=== PATIENT | male | born 1980 | race Caucasian/White ===

== ENCOUNTER 2019-08-02 15:29 | Observation (INO) | payer BC, OTHER ==
[2019-08-02] MEDS ORDERED: Sodium Chloride 0.9% 1,000 ML IV ONE (15:48)
--- NOTE | 2019-08-02 15:48 | EDM.PDOC ---
ED HPI GENERAL MEDICAL PROBLEM - General Chief Complaint: Abdominal Pain Stated Complaint: ABDOMINAL PAIN Time Seen by Provider: 08/02/19 15:43 - History of Present Illness INITIAL COMMENTS - FREE TEXT/NARRATIVE: HISTORY AND PHYSICAL: History of present illness: Patient is 39-year-old white male presents with concern of abdominal pain worsened last 24 hours was sent from clinic with a CT scan suggestive of acute appendicitis patient also awake, 15,000. Patient also complains of nausea and vomiting over last 24 hours. Review of systems: As per history of present illness and below otherwise all systems reviewed and negative. Past medical history: As per history of present illness and as reviewed below otherwise noncontributory. Surgical history: As per history of present illness and as reviewed below otherwise noncontributory. Social history: No reported history of drug or alcohol abuse. Family history: As per history of present illness and as reviewed below otherwise noncontributory. Physical exam: HEENT: Atraumatic, normocephalic, pupils reactive, negative for conjunctival pallor or scleral icterus, mucous membranes moist, throat clear, neck supple, nontender, trachea midline. Lungs: Clear to auscultation, breath sounds equal bilaterally, chest nontender. Heart: S1S2, regular, negative for clicks, rubs, or JVD. Abdomen: Soft, nondistended, localized tenderness right lower quadrant with rebound and guarding Negative for masses or hepatosplenomegaly. Negative for costovertebral tenderness. Pelvis: Stable nontender. Genitourinary: Deferred. Rectal: Deferred. Extremities: Atraumatic, negative for cords or calf pain. Neurovascular unremarkable. Neuro: Awake, alert, oriented. Cranial nerves II through XII unremarkable. Cerebellum unremarkable. Motor and sensory unremarkable throughout. Exam nonfocal. Diagnostics: CBC CMP PT/INR UA Therapeutics: Saline 1 L bolus Impression: 1 acute appendicitis Definitive disposition and diagnosis as appropriate pending reevaluation and review of above. right lower abd Pain Score (Numeric/FACES): 10 - Related Data Allergies Allergy/AdvReac Type Severity Reaction Status Date / Time No Known Allergies Allergy Verified 08/02/19 15:40 Home Meds: Home Meds . [No Known Home Meds] 08/02/19 [History] Past Medical History - Past Health History Medical/Surgical History: Denies Medical/Surgical History Social & Family History - Family History Family Medical History: Noncontributory - Tobacco Use Smoking Status *Q: Light Tobacco Smoker Years of Tobacco use: 20 Packs/Tins Daily: 0 - Recreational Drug Use Recreational Drug Use: No ED ROS GENERAL - Review of Systems Review Of Systems: Comprehensive ROS is negative, except as noted in HPI. ED EXAM, GENERAL - Physical Exam Exam: See Below (See dictation) Course - Vital Signs Last Recorded V/S: Last Vital Signs Temp 36.8 C 08/02/19 15:37 Pulse 92 08/02/19 15:37 Resp 18 08/02/19 15:37 BP 123/81 08/02/19 15:37 Pulse Ox 97 08/02/19 15:37 Departure - Departure Time of Disposition: 15:47 Disposition: Home, Self-Care 01 Condition: Good Clinical Impression: Abdominal pain, Appendicitis - Discharge Information Referrals: PCP,Unobtain [Primary Care Provider] - Sepsis Event Note - Evaluation Sepsis Screening Result: No Definite Risk - Focused Exam Vital Signs: Vital Signs Temp Pulse Resp BP Pulse Ox 08/02/19 15:37 36.8 C 92 18 123/81 97 Date Exam was Performed: 08/02/19 Time Exam was Performed: 15:45
[2019-08-02] MEDS ORDERED: Piperacillin/Tazobactam 3.375 GM in Sodium Chloride 0.9% 50 ML IV ONE (16:18)
[2019-08-02 16:36] LABS: BLOOD UREA NITROGEN,BUN 12 mg/dL (7.0-18.0); CARBON DIOXIDE,CO2 24.6 mmol/L (21.0-32.0); CHLORIDE,CL 101 mmol/L (98-107); GLUCOSE RANDOM 109 mg/dL (74-106); POTASSIUM,K 3.6 mmol/L (3.5-5.1); SODIUM,NA 137 mmol/L (136-148)
[2019-08-02] MEDS ORDERED: Midazolam 1 MG/ML 2 ML SDV ONE (16:42)
[2019-08-02] MEDS ORDERED: Propofol 200 MG/20 ML SDV ONE (16:42)
[2019-08-02] MEDS ORDERED: fentaNYL 250 MCG/5 ML SDV ONE (16:43)
[2019-08-02] MEDS ORDERED: Rocuronium 100 MG/10 ML Syringe ONE (16:44)
[2019-08-02] MEDS ORDERED: Ondansetron 4 MG/2 ML SDV ONE (16:44)
[2019-08-02] MEDS ORDERED: Glycopyrrolate 0.2 MG/ML SDV ONE (16:44)
[2019-08-02] MEDS ORDERED: Ketorolac 30 MG/ML SDV ONE (16:44)
[2019-08-02] MEDS ORDERED: Lidocaine 2% 5 ML SDV ONE (16:44)
[2019-08-02] MEDS ORDERED: Sugammadex Sodium 200 MG/2 ML VIAL ONE (16:47)
--- NOTE | 2019-08-02 17:11 | PCM.HP.2 ---
H&P History of Present Illness - General Date of Service: 08/02/19 Admit Problem/Dx: Admission Diagnosis/Problem Admission Diagnosis/Problem Appendicitis Source of Information: Patient History Limitations: Reports: No Limitations - History of Present Illness Initial Comments - Free Text/Narative: Patient is an otherwise healthy 39 year old male who presented to the ER with abdominal pain. It started yesterday. It was located along the upper abdomen and at first he thought he was hungry. He went out for lunch but found that he had a poor appetite. He threw up what he did eat and continued to have nausea and vomiting the rest of the day. The patient looked up his symptoms online and felt that he may have appendicitis, but decided to wait until today to see if the pain persisted. Today the pain is now located in the RLQ and he continues to have no appetite and feel nauseated. He has been sipping on sprite all day but that is all. He denies fevers or chills. His vitals were stable on arrival. His wbc was elevated at 14K. A CT was perfomed that showed a large amount of inflammation at the cecum/terminal ileum with a questionably enlarged appendix suspicious for appendicitis. right lower abd Pain Score (Numeric/FACES): 10 - Related Data Allergies/Adverse Reactions: Allergies Allergy/AdvReac Type Severity Reaction Status Date / Time No Known Allergies Allergy Verified 08/02/19 15:40 Home Medications: Home Meds . [No Known Home Meds] 08/02/19 [History] Past Medical History - Past Health History Medical/Surgical History: Denies Medical/Surgical History Social & Family History - Family History Family Medical History: Noncontributory - Tobacco Use Smoking Status *Q: Light Tobacco Smoker Years of Tobacco use: 20 Packs/Tins Daily: 0 - Recreational Drug Use Recreational Drug Use: No H&P Review of Systems - Review of Systems: Review Of Systems: Comprehensive ROS is negative, except as noted in HPI. Exam - Exam Exam: See Below - Vital Signs Vital Signs: Last Vital Signs Temp 36.8 C 08/02/19 15:37 Pulse 82 08/02/19 16:55 Resp 16 08/02/19 16:55 BP 138/79 08/02/19 16:55 Pulse Ox 98 08/02/19 16:55 Weight: 100.698 kg - Exam General: Alert, Oriented HEENT: Conjunctiva Clear, Mucosa Moist & [place], Posterior Pharynx Clear Lungs: Clear to Auscultation, Normal Respiratory Effort Cardiovascular: Regular Rate, Regular Rhythm GI/Abdominal Exam: No Distention, Guarding (RLQ), Rigid (RLQ), Rebound (RLQ), Tender (RLQ) Back Exam: Normal Inspection Extremities: Normal Inspection - Patient Data Lab Results Last 24 hrs: Laboratory Results - last 24 hr 08/02/19 08/02/19 08/02/19 Range/Units 15:45 15:57 15:57 WBC 14.38 H (4.0-11.0) K/uL RBC 4.48 L (4.50-5.90) M/uL Hgb 13.2 (13.0-17.0) g/dL Hct 38.2 (38.0-50.0) % MCV 85.3 (80.0-98.0) fL MCH 29.5 (27.0-32.0) pg MCHC 34.6 (31.0-37.0) g/dL RDW Std Deviation 48.7 (28.0-62.0) fl RDW Coeff of Karina 16 H (11.0-15.0) % Plt Count 240 (150-400) K/uL MPV 10.00 (7.40-12.00) fL Neut % (Auto) 79.1 (48.0-80.0) % Lymph % (Auto) 11.0 L (16.0-40.0) % Hood % (Auto) 9.8 (0.0-15.0) % Eos % (Auto) 0.0 (0.0-7.0) % Baso % (Auto) 0.1 (0.0-1.5) % Neut # (Auto) 11.4 H (1.4-5.7) K/uL Lymph # (Auto) 1.6 (0.6-2.4) K/uL Hood # (Auto) 1.4 H (0.0-0.8) K/uL Eos # (Auto) 0.0 (0.0-0.7) K/uL Baso # (Auto) 0.0 (0.0-0.1) K/uL Nucleated RBC % 0.0 /100WBC Nucleated RBCs # 0 K/uL INR 1.10 Sodium (136-148) mmol/L Potassium (3.5-5.1) mmol/L Chloride (98-107) mmol/L Carbon Dioxide (21.0-32.0) mmol/L BUN (7.0-18.0) mg/dL Creatinine (0.8-1.3) mg/dL Est Cr Clr Drug Dosing mL/min Estimated GFR (MDRD) ml/min Glucose (74-106) mg/dL Calcium (8.5-10.1) mg/dL Total Bilirubin (0.2-1.0) mg/dL AST (15-37) IU/L ALT (14-63) IU/L Alkaline Phosphatase (46-116) U/L Total Protein (6.4-8.2) g/dL Albumin (3.4-5.0) g/dL Globulin (2.6-4.0) g/dL Albumin/Globulin Ratio (0.9-1.6) Urine Color YELLOW Urine Appearance CLEAR Urine pH 6.5 (5.0-8.0) Ur Specific Freer <= 1.005 (1.001-1.035) Urine Protein NEGATIVE (NEGATIVE) mg/dL Urine Glucose (UA) NEGATIVE (NEGATIVE) mg/dL Urine Ketones NEGATIVE (NEGATIVE) mg/dL Urine Occult Blood NEGATIVE (NEGATIVE) Urine Nitrite NEGATIVE (NEGATIVE) Urine Bilirubin NEGATIVE (NEGATIVE) Urine Urobilinogen 0.2 (<2.0) EU/dL Ur Leukocyte Esterase NEGATIVE (NEGATIVE) 08/02/19 Range/Units 15:57 WBC (4.0-11.0) K/uL RBC (4.50-5.90) M/uL Hgb (13.0-17.0) g/dL Hct (38.0-50.0) % MCV (80.0-98.0) fL MCH (27.0-32.0) pg MCHC (31.0-37.0) g/dL RDW Std Deviation (28.0-62.0) fl RDW Coeff of Karina (11.0-15.0) % Plt Count (150-400) K/uL MPV (7.40-12.00) fL Neut % (Auto) (48.0-80.0) % Lymph % (Auto) (16.0-40.0) % Hood % (Auto) (0.0-15.0) % Eos % (Auto) (0.0-7.0) % Baso % (Auto) (0.0-1.5) % Neut # (Auto) (1.4-5.7) K/uL Lymph # (Auto) (0.6-2.4) K/uL Hood # (Auto) (0.0-0.8) K/uL Eos # (Auto) (0.0-0.7) K/uL Baso # (Auto) (0.0-0.1) K/uL Nucleated RBC % /100WBC Nucleated RBCs # K/uL INR Sodium 137 (136-148) mmol/L Potassium 3.6 (3.5-5.1) mmol/L Chloride 101 (98-107) mmol/L Carbon Dioxide 24.6 (21.0-32.0) mmol/L BUN 12 (7.0-18.0) mg/dL Creatinine 1.2 (0.8-1.3) mg/dL Est Cr Clr Drug Dosing 94.19 mL/min Estimated GFR (MDRD) > 60.0 ml/min Glucose 109 H (74-106) mg/dL Calcium 8.9 (8.5-10.1) mg/dL Total Bilirubin 0.6 (0.2-1.0) mg/dL AST 12 L (15-37) IU/L ALT 30 (14-63) IU/L Alkaline Phosphatase 39 L (46-116) U/L Total Protein 7.7 (6.4-8.2) g/dL Albumin 3.8 (3.4-5.0) g/dL Globulin 3.9 (2.6-4.0) g/dL Albumin/Globulin Ratio 1.0 (0.9-1.6) Urine Color Urine Appearance Urine pH (5.0-8.0) Ur Specific Freer (1.001-1.035) Urine Protein (NEGATIVE) mg/dL Urine Glucose (UA) (NEGATIVE) mg/dL Urine Ketones (NEGATIVE) mg/dL Urine Occult Blood (NEGATIVE) Urine Nitrite (NEGATIVE) Urine Bilirubin (NEGATIVE) Urine Urobilinogen (<2.0) EU/dL Ur Leukocyte Esterase (NEGATIVE) Result Diagrams: 08/02/19 15:57 08/02/19 15:57 Sepsis Event Note - Evaluation Sepsis Screening Result: No Definite Risk Possible Source of Sepsis: GI Tract/Intra-abdominal - Focused Exam Vital Signs: Vital Signs Temp Pulse Resp BP Pulse Ox 08/02/19 16:55 82 16 138/79 98 08/02/19 15:37 36.8 C 92 18 123/81 97 Date Exam was Performed: 08/02/19 Time Exam was Performed: 17:06 - Problem List (1) Appendicitis SNOMED Code(s): 84307451 ICD Code: K37 - UNSPECIFIED APPENDICITIS Status: Acute Current Visit: Yes Problem List Initiated/Reviewed/Updated: Yes Orders Last 24hrs: Active Orders 24 hr Category Date Time Status Admission Status [Patient Status] [ADT] Stat ADT 08/02/19 16:23 Active Assessment/Plan Comment:: The patient and I discussed the pathophysiology of appendicitis. The treatment is appendectomy. I explained the procedures for this. I will attempt it laparoscopically but should I be unable to perform it safely I will convert to open. He has a large amount of inflammation in the area on CT and there is a good chance I may have to do this open. I explained the expected perioperative course in lap vs open as well as perforated vs not perforated. I explained the risks including bleeding, infection, or damage to surrounding structures. He verbalized understanding and wishes to proceed. He will need IV zosyn and need to remain NPO.
[2019-08-02] MEDS ORDERED: Bupivacaine 0.5% 30 ML SDV ONE (17:21)
[2019-08-02] MEDS ORDERED: fentaNYL 100 MCG/2 ML SDV IVPUSH PRN (17:26)
[2019-08-02] MEDS ORDERED: Ondansetron 4 MG/2 ML SDV IVPUSH PRN ×2 (17:26→19:39)
--- NOTE | 2019-08-02 17:26 | PCM.PREANE ---
Preanesthetic Assessment - Anesthesia/Transfusion/Family Hx Anesthesia History: Prior Anesthesia Without Reaction Family History of Anesthesia Reaction: No - Review of Systems General: No Symptoms Pulmonary: No Symptoms Cardiovascular: No Symptoms Gastrointestinal: No Symptoms Neurological: No Symptoms Other: Reports: None - Physical Assessment NPO Status Date: 08/02/19 NPO Status Time: 00:05 Vital Signs: Last Vital Signs Temp 36.8 C 08/02/19 15:37 Pulse 82 08/02/19 16:55 Resp 16 08/02/19 16:55 BP 138/79 08/02/19 16:55 Pulse Ox 98 08/02/19 16:55 Height: 1.88 m Weight: 100.698 kg ASA Class: 1E - Lab Values: Laboratory Last Values WBC 14.38 K/uL (4.0-11.0) H 08/02/19 15:57 RBC 4.48 M/uL (4.50-5.90) L 08/02/19 15:57 Hgb 13.2 g/dL (13.0-17.0) 08/02/19 15:57 Hct 38.2 % (38.0-50.0) 08/02/19 15:57 MCV 85.3 fL (80.0-98.0) 08/02/19 15:57 MCH 29.5 pg (27.0-32.0) 08/02/19 15:57 MCHC 34.6 g/dL (31.0-37.0) 08/02/19 15:57 RDW Std Deviation 48.7 fl (28.0-62.0) 08/02/19 15:57 RDW Coeff of Karina 16 % (11.0-15.0) H 08/02/19 15:57 Plt Count 240 K/uL (150-400) 08/02/19 15:57 MPV 10.00 fL (7.40-12.00) 08/02/19 15:57 Neut % (Auto) 79.1 % (48.0-80.0) 08/02/19 15:57 Lymph % (Auto) 11.0 % (16.0-40.0) L 08/02/19 15:57 [place] % (Auto) 9.8 % (0.0-15.0) 08/02/19 15:57 Eos % (Auto) 0.0 % (0.0-7.0) 08/02/19 15:57 Baso % (Auto) 0.1 % (0.0-1.5) 08/02/19 15:57 Neut # (Auto) 11.4 K/uL (1.4-5.7) H 08/02/19 15:57 Lymph # (Auto) 1.6 K/uL (0.6-2.4) 08/02/19 15:57 [place] # (Auto) 1.4 K/uL (0.0-0.8) H 08/02/19 15:57 Eos # (Auto) 0.0 K/uL (0.0-0.7) 08/02/19 15:57 Baso # (Auto) 0.0 K/uL (0.0-0.1) 08/02/19 15:57 Nucleated RBC % 0.0 /100WBC 08/02/19 15:57 Nucleated RBCs # 0 K/uL 08/02/19 15:57 INR 1.10 08/02/19 15:57 Sodium 137 mmol/L (136-148) 08/02/19 15:57 Potassium 3.6 mmol/L (3.5-5.1) 08/02/19 15:57 Chloride 101 mmol/L (98-107) 08/02/19 15:57 Carbon Dioxide 24.6 mmol/L (21.0-32.0) 08/02/19 15:57 BUN 12 mg/dL (7.0-18.0) 08/02/19 15:57 Creatinine 1.2 mg/dL (0.8-1.3) 08/02/19 15:57 Est Cr Clr Drug Dosing 94.19 mL/min 08/02/19 15:57 Estimated GFR (MDRD) > 60.0 ml/min 08/02/19 15:57 Glucose 109 mg/dL (74-106) H 08/02/19 15:57 Calcium 8.9 mg/dL (8.5-10.1) 08/02/19 15:57 Total Bilirubin 0.6 mg/dL (0.2-1.0) 08/02/19 15:57 AST 12 IU/L (15-37) L 08/02/19 15:57 ALT 30 IU/L (14-63) 08/02/19 15:57 Alkaline Phosphatase 39 U/L (46-116) L 08/02/19 15:57 Total Protein 7.7 g/dL (6.4-8.2) 08/02/19 15:57 Albumin 3.8 g/dL (3.4-5.0) 08/02/19 15:57 Globulin 3.9 g/dL (2.6-4.0) 08/02/19 15:57 Albumin/Globulin Ratio 1.0 (0.9-1.6) 08/02/19 15:57 Urine Color YELLOW 08/02/19 15:45 Urine Appearance CLEAR 08/02/19 15:45 Urine pH 6.5 (5.0-8.0) 08/02/19 15:45 Ur Specific Olivia <= 1.005 (1.001-1.035) 08/02/19 15:45 Urine Protein NEGATIVE mg/dL (NEGATIVE) 08/02/19 15:45 Urine Glucose (UA) NEGATIVE mg/dL (NEGATIVE) 08/02/19 15:45 Urine Ketones NEGATIVE mg/dL (NEGATIVE) 08/02/19 15:45 Urine Occult Blood NEGATIVE (NEGATIVE) 08/02/19 15:45 Urine Nitrite NEGATIVE (NEGATIVE) 08/02/19 15:45 Urine Bilirubin NEGATIVE (NEGATIVE) 08/02/19 15:45 Urine Urobilinogen 0.2 EU/dL (<2.0) 08/02/19 15:45 Ur Leukocyte Esterase NEGATIVE (NEGATIVE) 08/02/19 15:45 - Allergies Allergies/Adverse Reactions: Allergies Allergy/AdvReac Type Severity Reaction Status Date / Time No Known Allergies Allergy Verified 08/02/19 15:40 - Anesthesia Plan Free Text/Narrative:: Anes Note Patient has been NPO of food for 18 hours. However, he had some sips of clear liquids in the last hour. He denies being nauseated at this time. Plan RSi wtih Cricoid Pressure intubation. Maik dale CRNA - Acknowledgements Anesthesia Type Planned: General Anesthesia Pt an Appropriate Candidate for the Planned Anesthesia: Yes Alternatives and Risks of Anesthesia Discussed w Pt/Guardian: Yes Pt/Guardian Understands and Agrees with Anesthesia Plan: Yes PreAnesthesia Questionnaire - Past Health History Medical/Surgical History: Denies Medical/Surgical History - SUBSTANCE USE Smoking Status *Q: Light Tobacco Smoker Tobacco Use Within Last Twelve Months: Cigarettes Recreational Drug Use History: No - HOME MEDS Home Medications: Home Meds . [No Known Home Meds] 08/02/19 [History] - CURRENT (IN HOUSE) MEDS Current Meds: Current Medications Discontinued Medications Fentanyl (Sublimaze) Confirm Administered Dose 250 mcg .ROUTE .STK-MED ONE Stop: 08/02/19 16:44 Glycopyrrolate (Robinul) Confirm Administered Dose 0.2 mg .ROUTE .STK-MED ONE Stop: 08/02/19 16:45 Sodium Chloride (Normal Saline) 1,000 mls @ 999 mls/hr IV STAT ONE Stop: 08/02/19 16:48 Last Admin: 08/02/19 16:00 Dose: 999 mls/hr Piperacillin Sod/Tazobactam (Sod 3.375 gm/ Sodium Chloride) 50 mls @ 100 mls/ hr IV ONETIME ONE Stop: 08/02/19 16:47 Last Admin: 08/02/19 16:35 Dose: 100 mls/hr Ketorolac Tromethamine (Toradol) Confirm Administered Dose 30 mg .ROUTE .STK- MED ONE Stop: 08/02/19 16:45 Lidocaine (Xylocaine-Mpf 2%) Confirm Administered Dose 5 ml .ROUTE .STK-MED ONE Stop: 08/02/19 16:45 Midazolam HCl (Versed 1 Mg/Ml) Confirm Administered Dose 2 mg .ROUTE .STK-MED ONE Stop: 08/02/19 16:43 Ondansetron HCl (Zofran) Confirm Administered Dose 4 mg .ROUTE .STK-MED ONE Stop: 08/02/19 16:45 Propofol (Diprivan 20 Ml) Confirm Administered Dose 200 mg .ROUTE .STK-MED ONE Stop: 08/02/19 16:43 Rocuronium [place] (Zemuron) Confirm Administered Dose 100 mg .ROUTE .STK-MED ONE Stop: 08/02/19 16:45 Succinylcholine Chloride (Succinylcholine Chloride) Confirm Administered Dose 200 mg .ROUTE .STK-MED ONE Stop: 08/02/19 16:45 Sugammadex Sodium (Bridion) Confirm Administered Dose 200 mg .ROUTE .STK-MED ONE Stop: 08/02/19 16:48
[2019-08-02] MEDS ORDERED: HYDROmorphone 2 MG/ML Syringe ONE (18:15)
[2019-08-02] MEDS ORDERED: Phenylephrine/Normal Saline 100 MCG/ML 10 ML Syringe ONE (18:19)
[2019-08-02] MEDS ORDERED: HYDROmorphone 2 MG/ML Syringe IVPUSH PRN (19:39)
[2019-08-02] MEDS ORDERED: Sodium Chloride 0.9% 2.5 ML Syringe FLUSH PRN (19:39)
[2019-08-02] MEDS ORDERED: Sodium Chloride 0.9% 10 ML SDV IV PRN (19:39)
[2019-08-02] MEDS ORDERED: Sodium Chloride 0.9% 10 ML Syringe FLUSH PRN (19:39)
[2019-08-02] MEDS ORDERED: Promethazine 25 MG/ML SDV IM PRN (19:39)
--- NOTE | 2019-08-02 19:49 | PCM.OPNOTE ---
- General Post-Op/Procedure Note Date of Surgery/Procedure: 08/02/19 Operative Procedure(s): Laparoscopic appendectomy Findings: Necrotic and perforated appendicitis. Minimal purulent fluid. Pre Op Diagnosis: APpendicitis Post-Op Diagnosis: Perforated necrotic appendicitis Anesthesia Technique: MAC Primary Surgeon: Nelda Spencer Fluid Replacement, Intraop: 1,100 Output, Urine Amount: 400 EBL in mLs: 10 Condition: Stable Free Text/Narrative:: Intake & Output 08/02/19 08/02/19 08/02/19 06:59 14:59 22:59 Output Total 400 Balance -400
--- NOTE | 2019-08-02 20:40 | PCM.POSTAN ---
POST ANESTHESIA ASSESSMENT - MENTAL STATUS Mental Status: Alert - VITAL SIGNS Vital Signs: Last Vital Signs Temp 37.6 C 08/02/19 19:43 Pulse 80 08/02/19 20:14 Resp 16 08/02/19 20:14 BP 107/51 L 08/02/19 20:14 Pulse Ox 95 08/02/19 20:14 - RESPIRATORY Respiratory Status: Respiratory Rate WNL - CARDIOVASCULAR CV Status: Pulse Rate WNL - GASTROINTESTINAL GI Status: No Symptoms - POST OP HYDRATION Hydration Status: Adequate & Stable
[2019-08-02] MEDS ORDERED: Piperacillin/Tazobactam 3.375 GM in Sodium Chloride 0.9% 50 ML IV SCH (22:00)
[2019-08-02] MEDS: Piperacillin/Tazobactam 3.375 GM in Sodium Chloride 0.9% 50 ML IV SCH (22:03)
--- NOTE | 2019-08-02 22:47 | OR ---
SURGEON: NELDA SPENCER MD DATE OF PROCEDURE: 08/02/2019 PREOPERATIVE DIAGNOSIS: Acute appendicitis. POSTOPERATIVE DIAGNOSIS: Necrotic appendicitis, perforated. PROCEDURE PERFORMED: Laparoscopic appendectomy. PRIMARY SURGEON: Nelda Spencer MD. ANESTHESIA: General endotracheal anesthesia. FLUIDS: 1100 mL of crystalloid. ESTIMATED BLOOD LOSS: 10 mL. URINE OUTPUT: 400 mL. FINDINGS: Necrotic and slightly perforated appendicitis. Minimal amount of purulence around the appendix itself. Appendix was encased in small bowel. COMPLICATIONS: None. INDICATIONS: The patient is a 39-year-old male who presents with 1 day of abdominal pain. Outpatient workup revealed a white count of 14,[address] scan performed showed suspected appendicitis given the large amount of inflammation in the right lower quadrant. The patient and I discussed the need for an appendectomy. I explained both the laparoscopic as well as open procedure. I told them I would approach this laparoscopically first and convert to open should I be unable to perform it safely afterwards. We discussed the expected perioperative course as well as the risks including bleeding, infection, or damage to surrounding structures. The patient verbalized understanding and wishes to proceed. PROCEDURE IN DETAIL: The patient was brought into the OR and placed on the OR table in supine position. A time-out was completed verifying the patient's name, age, date of , allergies, and procedure to be performed. General endotracheal anesthesia was induced. The left arm was tucked to the patient's side and a Bautista catheter placed. The abdomen was prepped and draped in usual standard fashion. I anesthetized an area 3 fingerbreadths below the left subcostal margin in the midclavicular line with 0.5% Marcaine plain. An 11 blade was used to make a 1 cm incision in this area. I then gained entry into the left upper quadrant using a 5 mm optical trocar and a 0-degree 5 mm scope. All layers of the abdominal wall were visualized upon entry. The abdomen was insufflated. I then switched scopes to a 5 mm 30-degree scope. I inserted this into the abdomen and inspected the area underneath my initial trocar placement. No damage to surrounding structures was noted. A 5 mm trocar was then placed just left and lateral to the umbilicus under direct visualization. A 12 mm trocar was placed in the left lower quadrant under direct visualization. The patient was placed into Trendelenburg position and airplaned slightly to the left. I turned my attention to the right lower quadrant. There was a piece of small bowel that appeared to have some inflammatory rind around it. Using gentle dissection, I was able to peel this away from the underlying tissue. Under the piece of small bowel was a jang and necrotic-appearing appendix. The tip of this was grasped and elevated superiorly. The appendiceal mesentery was grossly inflamed and thickened. Using a Harmonic scalpel device, I dissected the appendix free from the appendiceal mesentery from distal to proximal fashion. The lateral edge of the appendiceal body was adhered densely to the retroperitoneum. Using endoscopic [place] and [place], I was able to dissect this tissue free. I digitally carried my dissection down to level of the base of the appendix. I could see the base of the appendix inserted on the cecum. This appeared uninvolved with the process going on above. Along the mid body of the appendix, I could see an opening in the appendiceal wall consistent with that of perforation. There was a small amount of purulence in this area as well. This was suctioned away. Using blunt dissection, I cleared away the appendix from all surrounding inflammatory tissue and used a Harmonic to clear away the appendiceal mesentery to the base of the appendix. Once the appendix was adequately mobilized, I brought an endoscopic stapling device into the field. I stapled and transected across the base of the appendix using a 45 mm blue load of anshul. The appendix was then placed in an EndoCatch bag and removed through the left lower quadrant port site. I then inspected my operative field. It was hemostatic. I irrigated the area with 500 mL of normal saline. This was suctioned out. I then suctioned out any excess fluid in the pelvis. The 12 mm trocar was removed. I closed the fascia at this site using a Salomon-Jackson device and an interrupted 0 Vicryl suture. The 5 mm trocars were then removed under direct visualization and the abdomen allowed to desufflate. I closed the deep subcutaneous fat with a single interrupted 3-0 Vicryl suture at the 12 mm trocar site. Given the appendix was perforated, I then closed the skin at each of the port sites with anshul. Sterile dressings were applied. All counts were complete and correct at the end of the case. The patient was then transferred to the PACU in stable condition. LEMEASH / MODL /[id number]
[2019-08-02] MEDS: Acetaminophen/oxyCODONE 325-5 MG Tab PO PRN (23:02)
[2019-08-02] MEDS: Lactated Ringers 1,000 ML IV SCH (23:04)
[2019-08-03] MEDS: Piperacillin/Tazobactam 3.375 GM in Sodium Chloride 0.9% 50 ML IV SCH ×2 (03:54→11:15)
[2019-08-03] MEDS: Acetaminophen/oxyCODONE 325-5 MG Tab PO PRN ×5 (04:09→20:56)
[2019-08-03 06:36] LABS: CARBON DIOXIDE,CO2 26.7 mmol/L (21.0-32.0); POTASSIUM,K 3.8 mmol/L (3.5-5.1)
--- NOTE | 2019-08-03 07:20 | PCM48HPAN ---
Post Anesthesia Note - EVALUATION WITHIN 48HRS OF ANESTHETIC Vital Signs in Normal Range: Yes Patient Participated in Evaluation: Yes Respiratory Function Stable: Yes Airway Patent: Yes Cardiovascular Function Stable: Yes Hydration Status Stable: Yes Pain Control Satisfactory: Yes Nausea and Vomiting Control Satisfactory: Yes Mental Status Recovered: Yes Vital Signs: Last Vital Signs Temp 99 F 08/03/19 04:02 Pulse 85 08/03/19 04:02 Resp 15 08/03/19 04:02 BP 132/65 08/03/19 04:02 Pulse Ox 96 08/03/19 04:02
[2019-08-03] MEDS ORDERED: Nicotine Polacrilex 2 MG Gum CHEW PRN (08:07)
[2019-08-03] MEDS: Lactated Ringers 1,000 ML IV SCH ×2 (08:17→16:54)
[2019-08-03] MEDS: Docusate Sodium 100 MG Cap PO SCH ×2 (08:18→20:55)
[2019-08-03] MEDS ORDERED: Nicotine 14 MG/24 Hr Patch TRDERM SCH (09:15)
[2019-08-03 13:14] LABS: CARBON DIOXIDE,CO2 26.8 mmol/L (21.0-32.0); POTASSIUM,K 3.8 mmol/L (3.5-5.1)
--- NOTE | 2019-08-03 14:37 | PCM.SURGPN ---
- General Info Date of Service: 08/03/19 POD#: 1 Functional Status: Reports: Pain Controlled, Tolerating Diet, Ambulating, Urinating, Incentive Spirometry - Review of Systems General: Reports: No Symptoms HEENT: Reports: No Symptoms Pulmonary: Reports: No Symptoms Cardiovascular: Reports: No Symptoms Gastrointestinal: Reports: Flatus, Other (Bloating ) Genitourinary: Reports: No Symptoms Musculoskeletal: Reports: No Symptoms Skin: Reports: No Symptoms - Patient Data Vitals - Most Recent: Last Vital Signs Temp 37.0 C 08/03/19 12:00 Pulse 76 08/03/19 12:00 Resp 18 08/03/19 12:00 BP 122/68 08/03/19 12:00 Pulse Ox 96 08/03/19 12:00 Weight - Most Recent: 100.698 kg I&O - Last 24 Hours: Intake & Output 08/02/19 08/03/19 08/03/19 22:59 06:59 14:59 Intake Total 2400 1204 Output Total 050 082 7254 Balance 1600 904 -1250 Lab Results Last 24 Hrs: Laboratory Results - last 24 hr 08/02/19 08/02/19 08/02/19 Range/Units 15:45 15:57 15:57 WBC 14.38 H (4.0-11.0) K/uL RBC 4.48 L (4.50-5.90) M/uL Hgb 13.2 (13.0-17.0) g/dL Hct 38.2 (38.0-50.0) % MCV 85.3 (80.0-98.0) fL MCH 29.5 (27.0-32.0) pg MCHC 34.6 (31.0-37.0) g/dL RDW Std Deviation 48.7 (28.0-62.0) fl RDW Coeff of Karina 16 H (11.0-15.0) % Plt Count 240 (150-400) K/uL MPV 10.00 (7.40-12.00) fL Neut % (Auto) 79.1 (48.0-80.0) % Lymph % (Auto) 11.0 L (16.0-40.0) % [place] % (Auto) 9.8 (0.0-15.0) % Eos % (Auto) 0.0 (0.0-7.0) % Baso % (Auto) 0.1 (0.0-1.5) % Neut # (Auto) 11.4 H (1.4-5.7) K/uL Lymph # (Auto) 1.6 (0.6-2.4) K/uL [place] # (Auto) 1.4 H (0.0-0.8) K/uL Eos # (Auto) 0.0 (0.0-0.7) K/uL Baso # (Auto) 0.0 (0.0-0.1) K/uL Nucleated RBC % 0.0 /100WBC Nucleated RBCs # 0 K/uL INR 1.10 Sodium (136-148) mmol/L Potassium (3.5-5.1) mmol/L Chloride (98-107) mmol/L Carbon Dioxide (21.0-32.0) mmol/L BUN (7.0-18.0) mg/dL Creatinine (0.8-1.3) mg/dL Est Cr Clr Drug Dosing mL/min Estimated GFR (MDRD) ml/min Glucose (74-106) mg/dL Calcium (8.5-10.1) mg/dL Total Bilirubin (0.2-1.0) mg/dL AST (15-37) IU/L ALT (14-63) IU/L Alkaline Phosphatase (46-116) U/L Total Protein (6.4-8.2) g/dL Albumin (3.4-5.0) g/dL Globulin (2.6-4.0) g/dL Albumin/Globulin Ratio (0.9-1.6) Urine Color YELLOW Urine Appearance CLEAR Urine pH 6.5 (5.0-8.0) Ur Specific [place] <= 1.005 (1.001-1.035) Urine Protein NEGATIVE (NEGATIVE) mg/dL Urine Glucose (UA) NEGATIVE (NEGATIVE) mg/dL Urine Ketones NEGATIVE (NEGATIVE) mg/dL Urine Occult Blood NEGATIVE (NEGATIVE) Urine Nitrite NEGATIVE (NEGATIVE) Urine Bilirubin NEGATIVE (NEGATIVE) Urine Urobilinogen 0.2 (<2.0) EU/dL Ur Leukocyte Esterase NEGATIVE (NEGATIVE) 08/02/19 08/03/19 08/03/19 Range/Units 15:57 06:09 06:09 WBC 8.96 (4.0-11.0) K/uL RBC 3.82 L (4.50-5.90) M/uL Hgb 11.1 L (13.0-17.0) g/dL Hct 33.4 L (38.0-50.0) % MCV 87.4 (80.0-98.0) fL MCH 29.1 (27.0-32.0) pg MCHC 33.2 (31.0-37.0) g/dL RDW Std Deviation 51.0 (28.0-62.0) fl RDW Coeff of Karina 16 H (11.0-15.0) % Plt Count 196 (150-400) K/uL MPV 9.30 (7.40-12.00) fL Neut % (Auto) (48.0-80.0) % Lymph % (Auto) (16.0-40.0) % [place] % (Auto) (0.0-15.0) % Eos % (Auto) (0.0-7.0) % Baso % (Auto) (0.0-1.5) % Neut # (Auto) (1.4-5.7) K/uL Lymph # (Auto) (0.6-2.4) K/uL [place] # (Auto) (0.0-0.8) K/uL Eos # (Auto) (0.0-0.7) K/uL Baso # (Auto) (0.0-0.1) K/uL Nucleated RBC % 0.0 /100WBC Nucleated RBCs # 0 K/uL INR Sodium 137 138 (136-148) mmol/L Potassium 3.6 3.8 (3.5-5.1) mmol/L Chloride 101 104 (98-107) mmol/L Carbon Dioxide 24.6 26.7 (21.0-32.0) mmol/L BUN 12 12 (7.0-18.0) mg/dL Creatinine 1.2 1.5 H (0.8-1.3) mg/dL Est Cr Clr Drug Dosing 94.19 75.35 mL/min Estimated GFR (MDRD) > 60.0 51.6 ml/min Glucose 109 H 107 H (74-106) mg/dL Calcium 8.9 8.1 L (8.5-10.1) mg/dL Total Bilirubin 0.6 (0.2-1.0) mg/dL AST 12 L (15-37) IU/L ALT 30 (14-63) IU/L Alkaline Phosphatase 39 L (46-116) U/L Total Protein 7.7 (6.4-8.2) g/dL Albumin 3.8 (3.4-5.0) g/dL Globulin 3.9 (2.6-4.0) g/dL Albumin/Globulin Ratio 1.0 (0.9-1.6) Urine Color Urine Appearance Urine pH (5.0-8.0) Ur Specific [place] (1.001-1.035) Urine Protein (NEGATIVE) mg/dL Urine Glucose (UA) (NEGATIVE) mg/dL Urine Ketones (NEGATIVE) mg/dL Urine Occult Blood (NEGATIVE) Urine Nitrite (NEGATIVE) Urine Bilirubin (NEGATIVE) Urine Urobilinogen (<2.0) EU/dL Ur Leukocyte Esterase (NEGATIVE) 08/03/19 Range/Units 12:43 WBC (4.0-11.0) K/uL RBC (4.50-5.90) M/uL Hgb (13.0-17.0) g/dL Hct (38.0-50.0) % MCV (80.0-98.0) fL MCH (27.0-32.0) pg MCHC (31.0-37.0) g/dL RDW Std Deviation (28.0-62.0) fl RDW Coeff of Karina (11.0-15.0) % Plt Count (150-400) K/uL MPV (7.40-12.00) fL Neut % (Auto) (48.0-80.0) % Lymph % (Auto) (16.0-40.0) % [place] % (Auto) (0.0-15.0) % Eos % (Auto) (0.0-7.0) % Baso % (Auto) (0.0-1.5) % Neut # (Auto) (1.4-5.7) K/uL Lymph # (Auto) (0.6-2.4) K/uL [place] # (Auto) (0.0-0.8) K/uL Eos # (Auto) (0.0-0.7) K/uL Baso # (Auto) (0.0-0.1) K/uL Nucleated RBC % /100WBC Nucleated RBCs # K/uL INR Sodium 139 (136-148) mmol/L Potassium 3.8 (3.5-5.1) mmol/L Chloride 104 (98-107) mmol/L Carbon Dioxide 26.8 (21.0-32.0) mmol/L BUN 13 (7.0-18.0) mg/dL Creatinine 1.4 H (0.8-1.3) mg/dL Est Cr Clr Drug Dosing 80.73 mL/min Estimated GFR (MDRD) 55.8 ml/min Glucose 89 (74-106) mg/dL Calcium 8.1 L (8.5-10.1) mg/dL Total Bilirubin (0.2-1.0) mg/dL AST (15-37) IU/L ALT (14-63) IU/L Alkaline Phosphatase (46-116) U/L Total Protein (6.4-8.2) g/dL Albumin (3.4-5.0) g/dL Globulin (2.6-4.0) g/dL Albumin/Globulin Ratio (0.9-1.6) Urine Color Urine Appearance Urine pH (5.0-8.0) Ur Specific [place] (1.001-1.035) Urine Protein (NEGATIVE) mg/dL Urine Glucose (UA) (NEGATIVE) mg/dL Urine Ketones (NEGATIVE) mg/dL Urine Occult Blood (NEGATIVE) Urine Nitrite (NEGATIVE) Urine Bilirubin (NEGATIVE) Urine Urobilinogen (<2.0) EU/dL Ur Leukocyte Esterase (NEGATIVE) Med Orders - Current: Current Medications Docusate Sodium (Colace) 100 mg PO BID [facility] Last Admin: 08/03/19 08:18 Dose: 100 mg Fentanyl (Sublimaze) 50 mcg IVPUSH Q5M PRN PRN Reason: Pain Hydromorphone HCl (Dilaudid) 0.5 mg IVPUSH Q1H PRN PRN Reason: Pain (severe 7-10) Lactated Ringer's (Ringers, Lactated) 1,000 mls @ 125 mls/hr IV ASDIRECTED [facility] Last Admin: 08/03/19 08:17 Dose: 125 mls/hr Piperacillin Sod/Tazobactam (Sod 3.375 gm/ Sodium Chloride) 50 mls @ 100 mls/ hr IV Q6H [facility] Last Admin: 08/03/19 11:15 Dose: 100 mls/hr Nicotine (Habitrol) 14 mg TRDERM DAILY [facility] Ondansetron HCl (Zofran) 4 mg IVPUSH Q4H PRN PRN Reason: Nausea Ondansetron HCl (Zofran) 4 mg IVPUSH Q6H PRN PRN Reason: Nausea/Vomiting Oxycodone/Acetaminophen (Percocet 325-5 Mg) 2 tab PO Q4H PRN PRN Reason: Pain (moderate 4-6) Last Admin: 08/03/19 12:49 Dose: 2 tab Promethazine HCl (Phenergan) 25 mg IM Q6H PRN PRN Reason: Nausea Sodium Chloride (Saline Flush) 10 ml FLUSH ASDIRECTED PRN PRN Reason: Keep Vein Open Sodium Chloride (Saline Flush) 2.5 ml FLUSH ASDIRECTED PRN PRN Reason: Keep Vein Open Sodium Chloride (Normal Saline) 10 ml IV ASDIRECTED PRN PRN Reason: IV Use Discontinued Medications Bupivacaine HCl (Marcaine 0.5%) Confirm Administered Dose 30 ml .ROUTE .STK-MED ONE Stop: 08/02/19 17:22 Fentanyl (Sublimaze) Confirm Administered Dose 250 mcg .ROUTE .STK-MED ONE Stop: 08/02/19 16:44 Glycopyrrolate (Robinul) Confirm Administered Dose 0.2 mg .ROUTE .STK-MED ONE Stop: 08/02/19 16:45 Hydromorphone HCl (Dilaudid) Confirm Administered Dose 2 mg .ROUTE .STK-MED ONE Stop: 08/02/19 18:16 Sodium Chloride (Normal Saline) 1,000 mls @ 999 mls/hr IV STAT ONE Stop: 08/02/19 16:48 Last Admin: 08/02/19 16:00 Dose: 999 mls/hr Piperacillin Sod/Tazobactam (Sod 3.375 gm/ Sodium Chloride) 50 mls @ 100 mls/ hr IV ONETIME ONE Stop: 08/02/19 16:47 Last Admin: 08/02/19 16:35 Dose: 100 mls/hr Ketorolac Tromethamine (Toradol) Confirm Administered Dose 30 mg .ROUTE .STK- MED ONE Stop: 08/02/19 16:45 Lidocaine (Xylocaine-Mpf 2%) Confirm Administered Dose 5 ml .ROUTE .STK-MED ONE Stop: 08/02/19 16:45 Midazolam HCl (Versed 1 Mg/Ml) Confirm Administered Dose 2 mg .ROUTE .STK-MED ONE Stop: 08/02/19 16:43 Ondansetron HCl (Zofran) Confirm Administered Dose 4 mg .ROUTE .STK-MED ONE Stop: 08/02/19 16:45 Phenylephrine HCl (Phenylephrine In Ns 100 Mcg/Ml) Confirm Administered Dose 1 mg .ROUTE .STK-MED ONE Stop: 08/02/19 18:20 Propofol (Diprivan 20 Ml) Confirm Administered Dose 200 mg .ROUTE .STK-MED ONE Stop: 08/02/19 16:43 Rocuronium [place] (Zemuron) Confirm Administered Dose 100 mg .ROUTE .STK-MED ONE Stop: 08/02/19 16:45 Succinylcholine Chloride (Succinylcholine Chloride) Confirm Administered Dose 200 mg .ROUTE .STK-MED ONE Stop: 08/02/19 16:45 Sugammadex Sodium (Bridion) Confirm Administered Dose 200 mg .ROUTE .STK-MED ONE Stop: 08/02/19 16:48 - Exam Wound/Incisions: Healing Well, Dressing Dry and Intact General: Alert, Oriented HEENT: Pupils Equal, Pupils Reactive Lungs: Normal Respiratory Effort Cardiovascular: Regular Rate GI/Abdominal Exam: Soft, Non-Tender, No Mass, Distended Skin: Warm, Dry, Intact Neurological: No New Focal Deficit Psy/Mental Status: Alert, Normal Affect, Normal Mood Sepsis Event Note - Evaluation Sepsis Screening Result: No Definite Risk - Focused Exam Vital Signs: Vital Signs Temp Pulse Resp BP Pulse Ox 08/03/19 12:00 37.0 C 76 18 122/68 96 08/03/19 08:22 37.6 C 68 16 128/65 94 L 08/03/19 04:02 37.2 C 85 15 132/65 96 Date Exam was Performed: 08/03/19 Time Exam was Performed: 14:30 - Problem List & Annotations (1) Appendicitis SNOMED Code(s): 52488875 Code(s): K37 - UNSPECIFIED APPENDICITIS Status: Acute Current Visit: Yes - Problem List Review Problem List Initiated/Reviewed/Updated: Yes - My Orders Last 24 Hours: Active Orders 24 hr Category Date Time Status Patient Status [ADT] Routine ADT 08/02/19 19:40 Active Notify Provider Vital Signs [RC] PRN Care 08/02/19 19:41 Active RT Incentive Spirometry [RC] Q1HWA Care 08/02/19 19:39 Active Up With Assistance [RC] ASDIRECTED Care 08/02/19 19:39 Active Vital Signs [RC] PER UNIT ROUTINE Care 08/02/19 19:40 Active Regular Diet [DIET] Diet 08/03/19 Breakfast Active Acetaminophen/oxyCODONE [Percocet 325-5 MG] Med 08/02/19 19:39 Active 2 tab PO Q4H PRN Docusate Sodium [Colace] Med 08/03/19 09:00 Active 100 mg PO BID HYDROmorphone [Dilaudid] Med 08/02/19 19:39 Active 0.5 mg IVPUSH Q1H PRN Lactated Ringers [Ringers, Lactated] 1,000 ml Med 08/02/19 19:45 Active IV ASDIRECTED Nicotine [Habitrol] Med 08/03/19 09:15 Active 14 mg TRDERM DAILY Ondansetron [Zofran] Med 08/02/19 17:26 Active 4 mg IVPUSH Q4H PRN Ondansetron [Zofran] Med 08/02/19 19:39 Active 4 mg IVPUSH Q6H PRN Piperacillin/Tazobactam [Piperacil-Tazobact] 3.375 gm Med 08/02/19 22:00 Active Sodium Chloride 0.9% [Normal Saline] 50 ml IV Q6H Promethazine [Phenergan] Med 08/02/19 19:39 Active 25 mg IM Q6H PRN Sodium Chloride 0.9% [Normal Saline] Med 08/02/19 19:39 Active 10 ml IV ASDIRECTED PRN Sodium Chloride 0.9% [Saline Flush] Med 08/02/19 19:39 Active 10 ml FLUSH ASDIRECTED PRN Sodium Chloride 0.9% [Saline Flush] Med 08/02/19 19:39 Active 2.5 ml FLUSH ASDIRECTED PRN fentaNYL [Sublimaze] Med 08/02/19 17:26 Active 50 mcg IVPUSH Q5M PRN Peripheral IV Insertion Adult [OM.PC] Urgent Oth 08/02/19 19:39 Ordered Resuscitation Status Routine Resus Stat 08/02/19 19:39 Ordered Medication Orders Docusate Sodium (Colace) 100 mg PO BID [facility] Last Admin: 08/03/19 08:18 Dose: 100 mg Fentanyl (Sublimaze) 50 mcg IVPUSH Q5M PRN PRN Reason: Pain Hydromorphone HCl (Dilaudid) 0.5 mg IVPUSH Q1H PRN PRN Reason: Pain (severe 7-10) Lactated Ringer's (Ringers, Lactated) 1,000 mls @ 125 mls/hr IV ASDIRECTED [facility] Last Admin: 08/03/19 08:17 Dose: 125 mls/hr Infusion: 08/03/19 07:04 Dose: 125 mls/hr Admin: 08/02/19 23:04 Dose: 125 mls/hr Piperacillin Sod/Tazobactam (Sod 3.375 gm/ Sodium Chloride) 50 mls @ 100 mls/ hr IV Q6H [facility] Last Admin: 08/03/19 11:15 Dose: 100 mls/hr Infusion: 08/03/19 04:24 Dose: 100 mls/hr Admin: 08/03/19 03:54 Dose: 100 mls/hr Infusion: 08/02/19 22:33 Dose: 100 mls/hr Admin: 08/02/19 22:03 Dose: 100 mls/hr Nicotine (Habitrol) 14 mg TRDERM DAILY [facility] Ondansetron HCl (Zofran) 4 mg IVPUSH Q4H PRN PRN Reason: Nausea Ondansetron HCl (Zofran) 4 mg IVPUSH Q6H PRN PRN Reason: Nausea/Vomiting Oxycodone/Acetaminophen (Percocet 325-5 Mg) 2 tab PO Q4H PRN PRN Reason: Pain (moderate 4-6) Last Admin: 08/03/19 12:49 Dose: 2 tab Admin: 08/03/19 08:16 Dose: 2 tab Admin: 08/03/19 04:09 Dose: 2 tab Admin: 08/02/19 23:02 Dose: 2 tab Promethazine HCl (Phenergan) 25 mg IM Q6H PRN PRN Reason: Nausea Sodium Chloride (Saline Flush) 10 ml FLUSH ASDIRECTED PRN PRN Reason: Keep Vein Open Sodium Chloride (Saline Flush) 2.5 ml FLUSH ASDIRECTED PRN PRN Reason: Keep Vein Open Sodium Chloride (Normal Saline) 10 ml IV ASDIRECTED PRN PRN Reason: IV Use - Plan Plan (Free Text/Narrative):: Neuro/Pain: IV dilaudid for severe pain, po percocet for moderate pain control CV/Pulm: Stable. Slight hypertension. GI: Regular diet. Passing flatus. Prn bowel meds for constipation. Renal: Cr elevated last evening and again this morning. Stable this afternoon. Continue IV fluids. ID: D/C [email or web address]. Start po cipro, flagyl. Heme: Slightly down from OR blood loss and dehydration. Px: SCDs
[2019-08-03] MEDS: metroNIDAZOLE 250 MG Tab PO SCH ×2 (15:57→22:42)
[2019-08-03] MEDS ORDERED: Non-Formulary Medication 1 Each (Patient's Own Medication 1 EACH) BUCCAL PRN (17:45)
[2019-08-03] MEDS ORDERED: Nicotine Polacrilex 4 MG Gum BUCCAL PRN (18:03)
[2019-08-03] MEDS: Ciprofloxacin 500 MG Tab PO SCH (20:56)
[2019-08-04] MEDS: Acetaminophen/oxyCODONE 325-5 MG Tab PO PRN ×3 (01:06→09:50)
[2019-08-04] MEDS: Lactated Ringers 1,000 ML IV SCH (01:20)
[2019-08-04] MEDS: metroNIDAZOLE 250 MG Tab PO SCH (06:29)
[2019-08-04 08:17] LABS: BLOOD UREA NITROGEN,BUN 10 mg/dL (7.0-18.0); CARBON DIOXIDE,CO2 25.3 mmol/L (21.0-32.0); CHLORIDE,CL 104 mmol/L (98-107); GLUCOSE RANDOM 104 mg/dL (74-106); POTASSIUM,K 3.7 mmol/L (3.5-5.1); SODIUM,NA 140 mmol/L (136-148)
[2019-08-04] MEDS: Docusate Sodium 100 MG Cap PO SCH (08:18)
[2019-08-04] MEDS: Ciprofloxacin 500 MG Tab PO SCH (08:18)
--- NOTE | 2019-08-04 10:25 | PCM.DCSUM1 ---
Discharge Summary - Hospital Course Free Text/Narrative:: Patient is a 39-year-old male who presented to the emergency room with acute appendicitis. He was taken to the operating room for laparoscopic appendectomy. His appendix was necrotic and appeared perforated with no signs of an abscess but localized peritonitis. I was able to remove safely laparoscopically. The patient had a slight bump in his creatinine over the hospital stay. With IV fluids this improved. His vital signs remained stable. He was afebrile. He felt slightly distended but toelrated a regular diet and did have several BMs while in house. He was cleared for discharge. - Discharge Data Discharge Date: 08/04/19 Discharge Disposition: Home, Self-Care 01 Condition: Stable - Referral to Home Health Primary Care Physician: PCP Unobtainable - Discharge Diagnosis/Problem(s) (1) Appendicitis SNOMED Code(s): 59347562 ICD Code: K37 - UNSPECIFIED APPENDICITIS Status: Acute - Patient Summary/Data Operative Procedure(s) Performed: Laparoscopic appendectomy - Patient Instructions Diet: Regular Diet as Tolerated Activity: No Lifting Over 20 Pounds (for four weeks ), Rest and Relax Today Driving: Do Not Drive (for one week after surgery ) Showering/Bathing: May Shower, No Tub Bathing/Swimming (for 2 weeks ) Notify Provider of: Fever, Increased Pain, Swelling and Redness, Drainage, Nausea and/or Vomiting Other/Special Instructions: Ok to follow up with provider at home. Make appointment to see me when you come back. - Discharge Plan *PRESCRIPTION DRUG MONITORING PROGRAM REVIEWED*: Yes *COPY OF PRESCRIPTION DRUG MONITORING REPORT IN PATIENT ELOISE: Yes Prescriptions/Med Rec: metroNIDAZOLE 250 mg PO Q6HR #16 tablet Ciprofloxacin [Ciprofloxacin HCl] 500 mg PO BID #8 tablet Home Medications: Home Meds Patient's Own Medication [Ptom] 1 each BUCCAL Q2H PRN 08/03/19 [History] Ciprofloxacin [Ciprofloxacin HCl] 500 mg PO BID #8 tablet 08/04/19 [Rx] metroNIDAZOLE 250 mg PO Q6HR #16 tablet 08/04/19 [Rx] Patient Handouts: Acetaminophen; Oxycodone tablets, Laparoscopic Appendectomy, Adult, Care After, [id number], Ciprofloxacin tablets, Metronidazole tablets or capsules Referrals: Nelda Spencer MD [Physician] - - Discharge Summary/Plan Comment DC Time >30 min.: No - General Info Functional Status: Reports: Pain Controlled, Tolerating Diet, Ambulating - Review of Systems General: Reports: No Symptoms HEENT: Reports: No Symptoms Pulmonary: Reports: No Symptoms Cardiovascular: Reports: No Symptoms Gastrointestinal: Reports: No Symptoms Genitourinary: Reports: No Symptoms Musculoskeletal: Reports: No Symptoms - Patient Data Vitals - Most Recent: Last Vital Signs Temp 37.2 C 08/04/19 08:00 Pulse 91 08/04/19 08:00 Resp 18 08/04/19 08:00 BP 151/76 H 08/04/19 08:00 Pulse Ox 95 08/04/19 08:00 Weight - Most Recent: 100.698 kg I&O - Last 24 hours: Intake & Output 08/03/19 08/04/19 08/04/19 22:59 06:59 14:59 Intake Total 2365 2622 Output Total 1600 2450 Balance 765 172 Lab Results - Last 24 hrs: Laboratory Results - last 24 hr 08/03/19 08/04/19 08/04/19 Range/Units 12:43 07:41 07:41 WBC 7.16 (4.0-11.0) K/uL RBC 3.79 L (4.50-5.90) M/uL Hgb 11.2 L (13.0-17.0) g/dL Hct 32.7 L (38.0-50.0) % MCV 86.3 (80.0-98.0) fL MCH 29.6 (27.0-32.0) pg MCHC 34.3 (31.0-37.0) g/dL RDW Std Deviation 49.2 (28.0-62.0) fl RDW Coeff of Karina 15 (11.0-15.0) % Plt Count 232 (150-400) K/uL MPV 9.60 (7.40-12.00) fL Nucleated RBC % 0.0 /100WBC Nucleated RBCs # 0 K/uL Sodium 139 140 (136-148) mmol/L Potassium 3.8 3.7 (3.5-5.1) mmol/L Chloride 104 104 (98-107) mmol/L Carbon Dioxide 26.8 25.3 (21.0-32.0) mmol/L BUN 13 10 (7.0-18.0) mg/dL Creatinine 1.4 H 1.2 (0.8-1.3) mg/dL Est Cr Clr Drug Dosing 80.73 94.19 mL/min Estimated GFR (MDRD) 55.8 > 60.0 ml/min Glucose 89 104 (74-106) mg/dL Calcium 8.1 L 8.6 (8.5-10.1) mg/dL Med Orders - Current: Current Medications Ciprofloxacin (Ciprofloxacin Hcl) 500 mg PO BID [facility] Last Admin: 08/04/19 08:18 Dose: 500 mg Docusate Sodium (Colace) 100 mg PO BID [facility] Last Admin: 08/04/19 08:18 Dose: Not Given Fentanyl (Sublimaze) 50 mcg IVPUSH Q5M PRN PRN Reason: Pain Hydromorphone HCl (Dilaudid) 0.5 mg IVPUSH Q1H PRN PRN Reason: Pain (severe 7-10) Metronidazole (Metronidazole) 500 mg PO Q8H [facility] Last Admin: 08/04/19 06:29 Dose: 500 mg Nicotine Polacrilex (Nicorelief) 4 mg BUCCAL Q2H PRN PRN Reason: NICOTINE CRAVINGS Ondansetron HCl (Zofran) 4 mg IVPUSH Q4H PRN PRN Reason: Nausea Ondansetron HCl (Zofran) 4 mg IVPUSH Q6H PRN PRN Reason: Nausea/Vomiting Oxycodone/Acetaminophen (Percocet 325-5 Mg) 2 tab PO Q4H PRN PRN Reason: Pain (moderate 4-6) Last Admin: 08/04/19 09:50 Dose: 2 tab Promethazine HCl (Phenergan) 25 mg IM Q6H PRN PRN Reason: Nausea Sodium Chloride (Saline Flush) 10 ml FLUSH ASDIRECTED PRN PRN Reason: Keep Vein Open Sodium Chloride (Saline Flush) 2.5 ml FLUSH ASDIRECTED PRN PRN Reason: Keep Vein Open Sodium Chloride (Normal Saline) 10 ml IV ASDIRECTED PRN PRN Reason: IV Use Discontinued Medications Bupivacaine HCl (Marcaine 0.5%) Confirm Administered Dose 30 ml .ROUTE .STK-MED ONE Stop: 08/02/19 17:22 Fentanyl (Sublimaze) Confirm Administered Dose 250 mcg .ROUTE .STK-MED ONE Stop: 08/02/19 16:44 Glycopyrrolate (Robinul) Confirm Administered Dose 0.2 mg .ROUTE .STK-MED ONE Stop: 08/02/19 16:45 Hydromorphone HCl (Dilaudid) Confirm Administered Dose 2 mg .ROUTE .STK-MED ONE Stop: 08/02/19 18:16 Sodium Chloride (Normal Saline) 1,000 mls @ 999 mls/hr IV STAT ONE Stop: 08/02/19 16:48 Last Admin: 08/02/19 16:00 Dose: 999 mls/hr Piperacillin Sod/Tazobactam (Sod 3.375 gm/ Sodium Chloride) 50 mls @ 100 mls/ hr IV ONETIME ONE Stop: 08/02/19 16:47 Last Admin: 08/02/19 16:35 Dose: 100 mls/hr Lactated Ringer's (Ringers, Lactated) 1,000 mls @ 125 mls/hr IV ASDIRECTED [facility] Last Admin: 08/04/19 01:20 Dose: 125 mls/hr Piperacillin Sod/Tazobactam (Sod 3.375 gm/ Sodium Chloride) 50 mls @ 100 mls/ hr IV Q6H [facility] Last Admin: 08/03/19 11:15 Dose: 100 mls/hr Ketorolac Tromethamine (Toradol) Confirm Administered Dose 30 mg .ROUTE .STK- MED ONE Stop: 08/02/19 16:45 Lidocaine (Xylocaine-Mpf 2%) Confirm Administered Dose 5 ml .ROUTE .STK-MED ONE Stop: 08/02/19 16:45 Midazolam HCl (Versed 1 Mg/Ml) Confirm Administered Dose 2 mg .ROUTE .STK-MED ONE Stop: 08/02/19 16:43 Nicotine (Habitrol) 14 mg TRDERM DAILY [facility] Last Admin: 08/03/19 17:47 Dose: Not Given Ondansetron HCl (Zofran) Confirm Administered Dose 4 mg .ROUTE .STK-MED ONE Stop: 08/02/19 16:45 Phenylephrine HCl (Phenylephrine In Ns 100 Mcg/Ml) Confirm Administered Dose 1 mg .ROUTE .STK-MED ONE Stop: 08/02/19 18:20 Propofol (Diprivan 20 Ml) Confirm Administered Dose 200 mg .ROUTE .STK-MED ONE Stop: 08/02/19 16:43 Rocuronium [place] (Zemuron) Confirm Administered Dose 100 mg .ROUTE .STK-MED ONE Stop: 08/02/19 16:45 Succinylcholine Chloride (Succinylcholine Chloride) Confirm Administered Dose 200 mg .ROUTE .STK-MED ONE Stop: 08/02/19 16:45 Sugammadex Sodium (Bridion) Confirm Administered Dose 200 mg .ROUTE .STK-MED ONE Stop: 08/02/19 16:48 - Exam General: Reports: Alert, Oriented HEENT: Reports: Pupils Equal, Pupils Reactive Neck: Reports: Supple Lungs: Reports: Normal Respiratory Effort Cardiovascular: Reports: Regular Rate GI/Abdominal Exam: Soft, Non-Tender, No Mass, Distended (mild) Skin: Reports: Warm, Dry, Intact Wound/Incisions: Reports: Healing Well
== END 2019-08-04 10:55 | disposition home or self-care (01) ==
LOC: MW.ED 15:29 → MW.SDS 16:22 → MW.MS 19:40
PROVIDERS: ADMIT Surgery; ATTEND Surgery
DX: K35.32 Acute appendicitis with perforation, localized peritonitis, and gangrene, without abscess (principal); F17.200 Nicotine dependence, unspecified, uncomplicated
CPT/HCPCS: 36415; 44970; 80048; 80053; 81003; 85025; 85027; 85610; 88304; 96361; 96365; 99284; A9270; G0378; J0330; J1170; J1885; J2001; J2250; J2370; J2405; J2543; J2704; J3010; J3490; J7030; J7050; J7120; 00840; 99283

== ENCOUNTER 2024-10-28 22:15 | Emergency (ER) | payer BC, OTHER ==
[2024-10-28] MEDS ORDERED: Naloxone 0.4 MG/ML SDV IVPUSH PRN ×2 (22:21→22:47)
[2024-10-28] MEDS: Morphine 4 MG/ML Syringe IM ONE (22:28)
[2024-10-28] MEDS: Ondansetron 4 MG/2 ML SDV IVPUSH ONE ×2 (22:57→23:01)
[2024-10-28] MEDS: fentaNYL 50 MCG/ML SDV IVPUSH ONE (22:57)
[2024-10-28] MEDS: Propofol 200 MG/20 ML SDV IVPUSH ONE ×3 (23:01→23:36)
[2024-10-28] MEDS: Propofol 200 MG/20 ML SDV ONE ×2 (23:15→23:31)
[2024-10-28] MEDS: Midazolam 1 MG/ML 2 ML SDV ONE (23:16)
[2024-10-28] MEDS: Midazolam 1 MG/ML 2 ML SDV IVPUSH ONE (23:20)
[2024-10-28] MEDS: ceFAZolin 2 GM in Sodium Chloride 0.9% 50 ML IV ONE (23:21)
[2024-10-29] MEDS: fentaNYL 50 MCG/ML SDV IVPUSH ONE ×2 (00:02→00:42)
[2024-10-29] MEDS: Diphtheria,Pertussis(Acell),Tetanus Vaccine 0.5 ML Syringe IM ONE (00:14)
[2024-10-29] MEDS ORDERED: Naloxone 0.4 MG/ML SDV IVPUSH PRN (00:51)
[2024-10-29] MEDS: HYDROmorphone 0.5 MG/0.5 ML Syringe IVPUSH ONE (01:04)
[2024-10-29] MEDS: HYDROmorphone 1 MG/ML Syringe IVPUSH ONE (01:30)
== END 2024-10-29 03:24 | disposition home or self-care (01) ==
LOC: MW.ED 22:15
DX: S62.617B Displaced fracture of proximal phalanx of left little finger, initial encounter for open fracture (principal); Z23 Encounter for immunization; W23.1XXA Caught, crushed, jammed, or pinched between stationary objects, initial encounter; Y93.89 Activity, other specified
CPT/HCPCS: 26755; 73130; 73140; 90471; 90715; 96365; 96372; 96375; 96376; 99283; J0690; J1171; J2250; J2270; J2405; J2704; J3010; J3490; 99156; 99157